=== PATIENT | male | born 1980 | race Caucasian/White ===

== ENCOUNTER 2017-01-21 13:43 | Outpatient (CLI) | payer OTHER ==
[~2017-01-21 13:43] MED LIST: Iopamidol 370 76% 100 ML VIAL ONE
--- NOTE | 2017-01-21 18:19 | CT ---
CT ABDOMEN AND PELVIS WITH CONTRAST: History: Abdominal pain. Comparison: None. FINDINGS: Lung bases are clear. No pericardial effusion. Liver, gallbladder, spleen and pancreas are all unremarkable. There is abnormal thickening and mucosal irregularity of the terminal ileum and cecal apex. Pancreas is visualized and is normal. There is abnormal thickening and mucosal irregularity of the sigmoid colon and ascending colon. Mild increased densities are noted in the ileocolic region. Increase in number and size of lymph nod es. The aortoiliac contour is normal. Too small to characterize hypodensities present in the left kidney . Punctate calculus superior pole left kidney. IMPRESSION: 1. Findings suggestive of chronic inflammatory bowel disease in multiple areas of mucosal irregulari ty and thickening of the terminal ileum, celiac apex, ascending colon and sigmoid. 2. GI consultation recommended. Follow up non-emergent colonoscopy is recommended. 3. Normal appendix. 4. Atrophy and scarring left kidney as well as a punctate calculus. POS: ZEUS
== END 2017-01-21 13:44 | disposition home or self-care (01) ==
LOC: NAV CT 13:43
PROVIDERS: ATTEND Family Medicine
DX: R10.84 Generalized abdominal pain (principal)
CPT/HCPCS: 74177